=== PATIENT | female | born 1960 | race Asian ===

== ENCOUNTER 2019-11-27 14:46 | Emergency (ER) | payer BC, OTHER ==
[~2019-11-27] VITALS: Ht 154.9 cm; Wt 73.2 kg
[2019-11-27 14:48] VITALS: BP 176/107
--- NOTE | 2019-11-27 15:03 | NUR ---
COVID swab performed and sent to lab.
== END 2019-11-27 15:26 | disposition home or self-care (01) ==
LOC: ER 14:47
DX: R50.9 Fever, unspecified (principal); Z20.828 Contact with and (suspected) exposure to other viral communicable diseases; M79.18 Myalgia, other site; I10 Essential (primary) hypertension; J02.9 Acute pharyngitis, unspecified; Z90.49 Acquired absence of other specified parts of digestive tract; Z98.890 Other specified postprocedural states
CPT/HCPCS: 36415; 87635; 99283